=== PATIENT | male | born 1990 ===

== ENCOUNTER 2024-04-25 16:04 | Emergency (ER) | payer OTHER ==
[~2024-04-25] VITALS: Ht 181.6 cm; Wt 111.0 kg
[2024-04-25 16:41] VITALS: TEMP 98.7
[2024-04-25 18:30] VITALS: BP 134/71; PULSE 65; RESP 16; O2SAT 98
[2024-04-25] MEDS: DIAZEPAM 5 MG TABLET PO ONE (18:48)
[2024-04-25] MEDS: KETOROLAC TROMETHAMINE 30 MG/ML VIAL IM ONE (18:48)
[2024-04-25] MEDS: ACETAMINOPHEN 500 MG TABLET PO ONE (18:49)
[2024-04-25] MEDS: LIDOCAINE 5% TRANSDERMAL PATCH TD ONE (18:49)
[2024-04-25] MEDS ORDERED: METH-812 PO (19:05)
== END 2024-04-25 19:30 | disposition home or self-care (01) ==
LOC: EMS 16:04
DX: M54.2 Cervicalgia (principal); R51.9 Headache, unspecified; V89.2XXA Person injured in unspecified motor-vehicle accident, traffic, initial encounter; Y93.89 Activity, other specified; Y92.410 Unspecified street and highway as the place of occurrence of the external cause; Y99.8 Other external cause status
CPT/HCPCS: 99284; 96372; J1885